=== PATIENT | male | born 1970 | race African-American/Black ===

== ENCOUNTER 2018-05-17 10:28 | Inpatient (IN) | payer OTHER ==
[~2018-05-17] VITALS: Ht 190.5 cm; Wt 133.8 kg
[2018-05-17] MEDS ORDERED: PIP/TAZO PER PHARMACY MC PRN (12:45)
[2018-05-17 13:28] LABS: BASO # 0.1 x10^3/uL (0.0-0.2); BASO % 1 % (0-3); EOS # 0.1 x10^3/uL (0.0-0.7); EOS % 2 % (0-3); HEMATOCRIT 38.2 % (39.0-53.0); HEMOGLOBIN 13.4 g/dL (13.0-17.5); LYMPH # 1.6 x10^3/uL (1.0-4.8); LYMPH % 20 % (24-48); MEAN CORPUSCULAR HEMOGLOBIN 27 pg (25-35); MEAN CORPUSCULAR HGB CONC 35 g/dL (31-37); MEAN CORPUSCULAR VOLUME 77 fL (79-100); MONO # 0.5 x10^3/uL (0.0-1.1); MONO % 6 % (0-9); NEUT # 5.5 x10^3uL (1.8-7.7); NEUT % 71 % (31-73); PLATELET COUNT 280 x10^3/uL (140-400); RED BLOOD COUNT 4.99 x10^6/uL (4.30-5.70); RED CELL DISTRIBUTION WIDTH 17.3 % (11.5-14.5); WHITE BLOOD COUNT 7.8 x10^3/uL (4.0-11.0)
[2018-05-17 13:35] LABS: CALCIUM 9.2 mg/dL (8.5-10.1); GFR 97.3; POTASSIUM 3.8 mmol/L (3.5-5.1)
[2018-05-17 13:41] LABS: ALBUMIN 3.1 g/dL (3.4-5.0); ALBUMIN/GLOBULIN RATIO 0.8 (1.0-1.7); TOTAL BILIRUBIN 0.4 mg/dL (0.2-1.0)
[2018-05-17] MEDS ORDERED: VANCOMYCIN 2 GM in IV NORMAL SALINE 500ML BAG 500 ML IV ONE (14:00)
[2018-05-17] MEDS ORDERED: DEXTROSE 50% 25 GM / 50ML DISP.SYRIN. IV PRN (14:00)
[2018-05-17] MEDS ORDERED: INSULIN NPH/REG INSULIN 70/30 300 UNITS/3 ML INSULN.PEN. SQ PRN (14:15)
[2018-05-17] MEDS: MORPHINE SULFATE 4 MG/ML VIAL. IV PRN ×3 (14:40→22:17)
[2018-05-17 15:00] VITALS: BP 125/81
[2018-05-17] MEDS: PIPERACILLIN/TAZOBACTAM 3.375 GM in IV NORMAL SALINE 50ML 50 ML IV SCH ×2 (15:57→16:58)
[2018-05-17] MEDS: INSULIN NPH/REG INSULIN 70/30 300 UNITS/3 ML INSULN.PEN. SQ SCH (18:14)
[2018-05-17 19:00] VITALS: BP 154/100
[2018-05-17] MEDS: VANCOMYCIN PER PHARMACY MC PRN (20:02)
[2018-05-17] MEDS: LACTOBACILLUS RHAMNOSUS GG 1 CAPSULE. PO SCH (21:07)
[2018-05-17] MEDS: ACYCLOVIR 200 MG CAPSULE. PO SCH (21:07)
[2018-05-17] MEDS: ATORVASTATIN CALCIUM 10 MG TABLET. PO SCH (21:08)
[2018-05-17 23:00] VITALS: BP 144/89
[2018-05-18] MEDS: PIPERACILLIN/TAZOBACTAM 3.375 GM in IV NORMAL SALINE 50ML 50 ML IV SCH ×5 (00:32→18:34)
[2018-05-18 03:00] VITALS: BP 134/90
[2018-05-18] MEDS: VANCOMYCIN 2 GM in IV NORMAL SALINE 500ML BAG 500 ML IV SCH ×2 (04:46→19:37)
[2018-05-18 07:00] VITALS: BP 189/107
[2018-05-18] MEDS: MORPHINE SULFATE 4 MG/ML VIAL. IV PRN ×4 (08:10→21:00)
[2018-05-18] MEDS: ACYCLOVIR 200 MG CAPSULE. PO SCH ×2 (08:10→19:38)
[2018-05-18] MEDS: amLODIPine BESYLATE 10 MG TABLET PO SCH (08:12)
[2018-05-18] MEDS: LISINOPRIL 20 MG TABLET PO SCH (08:12)
[2018-05-18] MEDS: INSULIN NPH/REG INSULIN 70/30 300 UNITS/3 ML INSULN.PEN. SQ SCH ×2 (08:22→16:49)
--- NOTE | 2018-05-18 09:32 | PDOC ---
Infectious Disease Note Vital Sign Vital Signs Vital Signs Date Time Temp Pulse Resp B/P (MAP) Pulse Ox O2 Delivery O2 Flow Rate FiO2 05/18/18 08:12 74 189/107 05/18/18 07:00 98.1 20 74 Room Air 98.1 Labs Lab Laboratory Tests Test 05/17/18 12:08 05/17/18 13:10 05/17/18 18:05 05/17/18 21:48 Glucose (Fingerstick) 152 mg/dL (70-99) 226 mg/dL (70-99) 238 mg/dL (70-99) White Blood Count 7.8 x10^3/uL (4.0-11.0) Red Blood Count 4.99 x10^6/uL (4.30-5.70) Hemoglobin 13.4 g/dL (13.0-17.5) Hematocrit 38.2 % (39.0-53.0) Mean Corpuscular Volume 77 fL (79-100) Mean Corpuscular Hemoglobin 27 pg (25-35) Mean Corpuscular Hemoglobin Concent 35 g/dL (31-37) Red Cell Distribution Width 17.3 % (11.5-14.5) Platelet Count 280 x10^3/uL (140-400) Neutrophils (%) (Auto) 71 % (31-73) Lymphocytes (%) (Auto) 20 % (24-48) Monocytes (%) (Auto) 6 % (0-9) Eosinophils (%) (Auto) 2 % (0-3) Basophils (%) (Auto) 1 % (0-3) Neutrophils # (Auto) 5.5 x10^3uL (1.8-7.7) Lymphocytes # (Auto) 1.6 x10^3/uL (1.0-4.8) Monocytes # (Auto) 0.5 x10^3/uL (0.0-1.1) Eosinophils # (Auto) 0.1 x10^3/uL (0.0-0.7) Basophils # (Auto) 0.1 x10^3/uL (0.0-0.2) Sodium Level 137 mmol/L (136-145) Potassium Level 3.8 mmol/L (3.5-5.1) Chloride Level 103 mmol/L (98-107) Carbon Dioxide Level 29 mmol/L (21-32) Anion Gap 5 (6-14) Blood Urea Nitrogen 15 mg/dL (8-26) Creatinine 1.0 mg/dL (0.7-1.3) Estimated GFR (Cockcroft-Gault) 97.3 BUN/Creatinine Ratio 15 (6-20) Glucose Level 143 mg/dL (70-99) Calcium Level 9.2 mg/dL (8.5-10.1) Total Bilirubin 0.4 mg/dL (0.2-1.0) Aspartate Amino Transf (AST/SGOT) 290 U/L (15-37) Alanine Aminotransferase (ALT/SGPT) 152 U/L (16-63) Alkaline Phosphatase 93 U/L (46-116) Total Protein 7.0 g/dL (6.4-8.2) Albumin 3.1 g/dL (3.4-5.0) Albumin/Globulin Ratio 0.8 (1.0-1.7) Test 05/18/18 08:14 Glucose (Fingerstick) 233 mg/dL (70-99) Objective Assessment Rt big toe infection Rt big toe callous DM HTN Smoking Plan Plan of Care vanc and zosyn MRI d/w Dr Quijano supportive care MEREDITH RICHMOND MD May 18, 2018 09:32
--- NOTE | 2018-05-18 10:33 | HP ---
ADMIT DATE: 05/17/2018 HISTORY OF PRESENT ILLNESS: The patient is a 47-year-old male patient who was seen yesterday at the clinic by Dr. Garcia and was basically found to have infected right big toe and was admitted to do an MRI. We started him on IV antibiotic and to consult the infectious disease as well as the director airport and/or orthopedic surgeon. On questioning him, he did complain of pain, but denied any chills, rigors, or fever. PAST MEDICAL HISTORY: Significant for hypertension, type 2 diabetes as well as diabetic peripheral neuropathy. PAST SURGICAL HISTORY: Unremarkable. ALLERGIES: He has no known drug allergies. MEDICATIONS: He is currently on amlodipine 5 mg once a day, lisinopril 5 mg once a day, hydrochlorothiazide 25 mg once a day, metformin 1000 mg twice a day. He is also on Humalog insulin scheduled as well as sliding scale. FAMILY HISTORY: He has 1 brother and sister, both younger and healthy. His both parents are still alive in their 60s and healthy. SOCIAL HISTORY: He is . He has no children. He continues to smoke. He does not drink alcohol or use any recreational drugs. He is currently at the [facility] after he was released recently from care home. REVIEW OF SYSTEMS: As per history of present illness. PHYSICAL EXAMINATION: GENERAL: On examining him, he was resting flat, comfortably in bed, in no apparent respiratory distress, slightly pale. No jaundice, cyanosis, or thyromegaly. No jugular venous distension. No lower limb edema. VITAL SIGNS: His heart rate was 79, blood pressure 125/81, temperature was 97.9, respiratory rate was 18 and oxygen saturation was 97%. HEAD, EYES, EARS, NOSE AND THROAT: Showed normocephalic, atraumatic. NECK: Supple. HEART: Showed normal first and second heart sounds with no gallop, rub or murmur. CHEST: Clear to auscultation. No crepitation or rhonchi. ABDOMEN: Distended, soft, nontender. No guarding or rigidity. No organomegaly. Hernial orifice intact. Bowel sounds normal. NEUROLOGIC: He is awake, alert, responding appropriately. Cranial nerves intact. EXTREMITIES: He moves extremities without difficulty. He ambulates without assistance or assistive devices. Examination of the extremities showed no clubbing, cyanosis or edema. Both dorsalis pedis and tibialis posterior, both feet are easily palpable. He has markedly swollen infected right big toe with purulent discharge. ASSESSMENT AND PLAN: The patient was admitted directly to [facility] from the clinic and we ordered lab work as well as cultures of the wound to consult the director airport as well as Infectious Disease. Start him on vancomycin and Zosyn as per pharmacy recommendation to continue with all her other medications. We will monitor his blood sugar and adjust insulin as needed. GISELA MOSES MD DR: ANASTASIYA/leonard JOB#: [id number] / [id number]
[2018-05-18] MEDS ORDERED: GADOBUTROL 7.5 MMOL/7.5 ML VIAL IV ONE ×2 (10:45)
[2018-05-18 11:00] VITALS: BP 172/116
[2018-05-18] MEDS: LACTOBACILLUS RHAMNOSUS GG 1 CAPSULE. PO SCH ×2 (12:19→19:38)
--- NOTE | 2018-05-18 13:10 | RAD ---
MR of the right first toe with and without contrast HISTORY: Cellulitis of the first toe. Pain and swelling for one week at the plantar surface. TECHNIQUE: Pre and postcontrast images obtained through the first toe. FINDINGS: Mild marrow edema within the distal first phalanx. No aggressive bone destruction or significant T1 marrow replacement to suggest acute osteomyelitis. Soft tissue edema around the first toe and extending into the distal visualized forefoot, compatible with mild cellulitis and myositis. This demonstrates mild enhancement particularly around the second third and fourth metatarsals. No evidence of an organized fluid collection or drainable abscess. No large joint effusion. There is no evidence of acute tendon disruption. No significant tendon sheath fluid. IMPRESSION: 1. Generalized cellulitis/myositis. No drainable abscess. 2. Mild marrow edema and enhancement at the first distal phalanx is likely reactive. No convincing evidence of osteomyelitis at this time. Electronically signed by: Talon Bai MD (05/18/2018 1:06 PM) [id number]
[2018-05-18] MEDS: VANCOMYCIN PER PHARMACY MC PRN (14:02)
[2018-05-18 15:00] VITALS: BP 171/121
--- NOTE | 2018-05-18 15:15 | PN ---
DATE: 05/18/2018 SUBJECTIVE: The patient is resting flat in bed, in no apparent respiratory distress. No pallor, jaundice, cyanosis or thyromegaly. No jugular venous distension. No lower limb edema. OBJECTIVE: VITAL SIGNS: His heart rate was 74, blood pressure was 189/107, temperature was 98.1, respiratory rate was 20 and oxygen saturation was 96% on room air. HEAD, EYES, EARS, NOSE AND THROAT: Normocephalic, atraumatic. The rest of clinical examination is stable big toes, tender, swollen. LABORATORY DATA: His lab work this morning showed a serum sodium 137, potassium 3.8, chloride 103, bicarbonate 29, anion gap of 5, BUN 15, creatinine 1, estimated GFR was 97, blood glucose was 143. Calcium was 9.2. Total bilirubin and alkaline phosphatase normal. AST, ALT are elevated. Total protein 7, albumin was 3.1. His white cell count was 7800, hemoglobin 13, hematocrit 38, MCV 77, platelet count 280,000. IMPRESSION: In summary, this is a 47-year-old -[place] male patient who was admitted again for infected right big toe. We will arrange for him to have an MRI to exclude the possibility of osteomyelitis. We will continue with IV Zosyn and vancomycin. Continue with his insulin. Continue to monitor his blood sugar and adjust insulin as needed. We have consulted the irrigator head as well as Infectious Disease and will follow him closely and decide the further management according to the finding on MRI. I will also check his sed rate and C-reactive protein to monitor the response to antibiotic. GISELA MOSES MD DR: ANASTASIYA/leonard JOB#: [id number] / [id number]
--- NOTE | 2018-05-18 15:29 | CONS ---
DATE OF CONSULTATION: 05/18/2018 REQUESTING PHYSICIAN: Dr. Quijano. REASON FOR CONSULTATION: Big toe infection. HISTORY OF PRESENT ILLNESS: This is a 47-year-old gentleman with history of diabetes and hypertension who has off and on toe problem for a long time. The patient says it just got worse recently, although my communication with Dr. Quijano, he has seen the patient before at [place] with infection and MRI was negative, treated. The patient evidently had been at the with the same thing too before. The patient denies any fever, denies any trauma. Denies any nausea, vomiting, diarrhea, chest pain, shortness of breath, abdominal pain. PAST MEDICAL HISTORY: Positive for diabetes mellitus, hypertension, hyperlipidemia and peripheral neuropathy. SOCIAL HISTORY: Positive for smoking that he says he quit yesterday. Negative for alcohol use or drug use. ALLERGIES: No known drug allergies. CURRENT MEDICATIONS: Reviewed. The patient is started on vancomycin and Zosyn. REVIEW OF SYSTEMS: As per HPI, all other systems reviewed are negative. PHYSICAL EXAMINATION: GENERAL: Alert, oriented gentleman, not in distress. VITAL SIGNS: Stable, afebrile. HEENT: NAD. NECK: Supple, no JVP, no lymphadenopathy. LUNGS: Clear. HEART: S1, S2 regular. ABDOMEN: Benign. EXTREMITIES: No edema, cyanosis. SKIN: Unremarkable except the right big toe is significantly swollen. It has a chronic appearance. There is a large callus on the plantar surface as well as there is ulcer on the plantar surface. Does have good dorsalis pedis palpable. NEUROLOGIC: The patient is neurologically intact. LABORATORY DATA: White count is normal, hemoglobin and platelets are normal. BUN and creatinine is normal. His AST is 290, ALT is 152. No x-ray yet available, but MRI has been ordered. IMPRESSION: 1. Diabetic foot infection, specifically big toe infection. 2. Diabetes. 3. Hypertension. 4. Hyperlipidemia. PLAN: Recommend continue vancomycin and Zosyn. Check MRI, supportive care and we will continue to follow. The patient was encouraged to stay away from smoking and I believe he also needs to offload this area to be able to get better. His liver function tests will need some more investigation. Thank you very much, Dr. Quijano for giving me the opportunity to participate in this patient's care. MEREDITH RICHMOND MD DR: DILCIA/leonard JOB#: [id number] / [id number]
[2018-05-18] MEDS ORDERED: LISINOPRIL 10 MG TABLET PO ONE (17:00)
[2018-05-18] MEDS ORDERED: amLODIPine BESYLATE 5 MG TABLET PO ONE (17:00)
[2018-05-18] MEDS: ATORVASTATIN CALCIUM 10 MG TABLET. PO SCH (19:38)
[2018-05-18 19:40] VITALS: BP 140/91
[2018-05-18 23:00] VITALS: BP 163/99
[2018-05-19] MEDS: PIPERACILLIN/TAZOBACTAM 3.375 GM in IV NORMAL SALINE 50ML 50 ML IV SCH ×5 (00:13→23:42)
[2018-05-19] MEDS: MORPHINE SULFATE 4 MG/ML VIAL. IV PRN ×3 (01:01→09:37)
[2018-05-19 03:00] VITALS: BP 130/91
[2018-05-19 04:47] LABS: VANC TR 10.6 mcg/mL (10.0-20.0)
[2018-05-19] MEDS: VANCOMYCIN 2 GM in IV NORMAL SALINE 500ML BAG 500 ML IV SCH ×3 (05:00→13:30)
[2018-05-19] MEDS: VANCOMYCIN PER PHARMACY MC PRN (05:36)
[2018-05-19 07:00] VITALS: BP 173/111
[2018-05-19] MEDS: amLODIPine BESYLATE 10 MG TABLET PO SCH (09:36)
[2018-05-19] MEDS: LISINOPRIL 20 MG TABLET PO SCH (09:36)
[2018-05-19] MEDS: LACTOBACILLUS RHAMNOSUS GG 1 CAPSULE. PO SCH ×2 (09:36→20:59)
[2018-05-19] MEDS: ACYCLOVIR 200 MG CAPSULE. PO SCH ×2 (09:36→20:59)
[2018-05-19] MEDS: INSULIN NPH/REG INSULIN 70/30 300 UNITS/3 ML INSULN.PEN. SQ SCH ×2 (09:49→17:45)
[2018-05-19] MEDS: oxyCODONE/APAP 5/325 1 TAB TABLET PO PRN ×3 (11:44→22:11)
[2018-05-19 11:49] VITALS: BP 169/108
--- NOTE | 2018-05-19 15:18 | PDOC ---
Infectious Disease Note Subjective Subjective Comfortable, denies pain/F/C/S/N/V/D ROS ROS per HPI otherwise negative Vital Sign Vital Signs Vital Signs Date Time Temp Pulse Resp B/P (MAP) Pulse Ox O2 Delivery O2 Flow Rate FiO2 05/19/18 12:44 Room Air 05/19/18 11:49 98.2 91 16 169/108 (128) 98 98.2 Physical Exam PHYSICAL EXAM GENERAL: Lying down, alert, smiling LUNGS: Clear. HEART: S1, S2 regular. ABDOMEN: Obese, soft, NT EXTREMITIES: Right foot bandaged SKIN: without rash NEUROLOGIC: Alert and oriented x 3 Labs Lab Laboratory Tests Test 05/18/18 16:47 05/18/18 20:46 05/19/18 04:15 05/19/18 07:37 Glucose (Fingerstick) 80 mg/dL (70-99) 176 mg/dL (70-99) 152 mg/dL (70-99) Erythrocyte Sedimentation Rate 8 (0-15) C-Reactive Protein, Quantitative 2.3 mg/L (0-3.3) Vancomycin Level Trough 10.6 mcg/mL (10.0-20.0) Vancomycin Last Dose Date [id number] Vancomycin Last Dose Time 1700 MRI right foot IMPRESSION: 1. Generalized cellulitis/myositis. No drainable abscess. 2. Mild marrow edema and enhancement at the first distal phalanx is likely reactive. No convincing evidence of osteomyelitis at this time. Objective Assessment Diabetic foot infection, specifically big toe infection. -MRI neg abscess or osteo Diabetes. Hypertension. Hyperlipidemia. Transaminitis Plan Plan of Care Vanc and Zosyn Trough 10.6 f/u labs in am Local wound care Patient seen and examined. Chart reviewed in detail. Case discussed with FOOD SERVICES MANAGER. Agree with above plan. DAE PIZARRO APRN May 19, 2018 15:18 JALIL ARNOLD MD May 19, 2018 19:44
[2018-05-19 15:36] VITALS: BP 173/102
--- NOTE | 2018-05-19 16:23 | CONS ---
DATE OF CONSULTATION: INDICATIONS: This 47-year-old gentleman has had problems with his right great toe. He has a history of diabetes with neuropathy and has had some previous treatment. He has been admitted to [facility] for treatment of this ulceration, has had previous treatment at [facility]. MRI has been done to rule out infection, which appears to be negative. PAST MEDICAL HISTORY: Hypertension, type 2 diabetes with peripheral neuropathy. PHYSICAL EXAMINATION: The patient has a very large ulceration on the plantar aspect of the right great toe. There is a peeling skin that is present with callus formation, some of which is a result of IV therapy and the swelling in the toe has apparently gone down. The base of that ulceration appears to be beefy red with granulation tissue. No necrotic tissue was noted. Very large in size. The toe is swollen, but does not appear to be grossly infected. No signs of abscess, drainage or odor. Pedal pulses are diminished, but present. ASSESSMENT: 1. Chronic diabetic ulcer, right great toe. 2. History of diabetes with neuropathy. PLAN: Remove some of the loose calluses in the process of being discharged. I talked to his case repairer that is present in the room and the patient and advised him that he really needs to stay off this, he needs to probably be followed up at the wound care center here at [facility] and see what they can do and the need to do aggressive immobilization. I do not know if he would be a candidate for hyperbaric along with possible vascular studies. I advised the patient that if he does not take care of this, that this could very easily end up with an amputated toe, which may not be all that bad of a resolution to his problem because I think it might be very hard to get him to stay off this long enough to get this large ulcer healed. My recommendation is to have him follow up at the wound care center here at [facility] for aggressive therapy and off weight protocols being initiated. MADI RAIN DPM DR: MUNIR/leonard JOB#: [id number] / [id number]
[2018-05-19 19:00] VITALS: BP 162/102
--- NOTE | 2018-05-19 22:16 | PN ---
DATE: 05/19/2018 SUBJECTIVE: The patient is sitting on the edge of the bed comfortably, in no apparent distress. He is awake, alert. On questioning him, he denied any complaint. Nursing staff did not voice any concern and stated he had an uneventful night. He has had an MRI, which basically showed that the patient has generalized cellulitis, myositis with no drainable abscess, mild marrow edema and enhancement at the first distal phalanx, likely reactive. There is no convincing evidence of osteomyelitis at this time. The patient was seen by the infectious disease specialist. He is now continued to be on IV vancomycin and Zosyn. His sed rate and C-reactive protein are within normal range. OBJECTIVE: GENERAL: On examining him today, he looked well and was clearly in no apparent respiratory distress. No pallor, jaundice, cyanosis or thyromegaly. No jugular venous distension. No limb edema. VITAL SIGNS: His heart rate was 79, blood pressure was 130/91, temperature was 98.1, respiratory rate was 16 and oxygen saturation was 96%. The rest of clinical exam is stable. LABORATORY DATA: Showed that he has elevated AST, ALT. I will hold his atorvastatin, calcium and repeat his lab works again tomorrow. PLAN: Continue meanwhile with IV vancomycin and Zosyn. I would consult also physical therapy to see if there are any surgical shoes that will prevent pressure on his big toe that has been now with recurrent cellulitis for which he was seen at least 4 times so far. GISELA MOSES MD DR: ANASTASIYA/leonard JOB#: [id number] / [id number]
[2018-05-19 23:00] VITALS: BP 137/92
[2018-05-20] MEDS: VANCOMYCIN 2 GM in IV NORMAL SALINE 500ML BAG 500 ML IV SCH ×2 (00:56→13:21)
[2018-05-20 03:00] VITALS: BP 158/101
[2018-05-20 06:05] LABS: ALBUMIN 2.8 g/dL (3.4-5.0); ALBUMIN/GLOBULIN RATIO 0.8 (1.0-1.7); CALCIUM 8.7 mg/dL (8.5-10.1); CREATININE 0.9 mg/dL (0.7-1.3); GFR 109.9; POTASSIUM 3.8 mmol/L (3.5-5.1); TOTAL BILIRUBIN 0.2 mg/dL (0.2-1.0); TOTAL PROTEIN 6.4 g/dL (6.4-8.2)
[2018-05-20] MEDS: PIPERACILLIN/TAZOBACTAM 3.375 GM in IV NORMAL SALINE 50ML 50 ML IV SCH ×4 (06:17→23:58)
[2018-05-20 07:00] VITALS: BP 145/103
[2018-05-20] MEDS: oxyCODONE/APAP 5/325 1 TAB TABLET PO PRN ×4 (07:54→20:09)
[2018-05-20] MEDS: INSULIN NPH/REG INSULIN 70/30 300 UNITS/3 ML INSULN.PEN. SQ SCH ×2 (07:56→17:21)
[2018-05-20] MEDS: LISINOPRIL 20 MG TABLET PO SCH (08:42)
[2018-05-20] MEDS: amLODIPine BESYLATE 10 MG TABLET PO SCH (08:42)
[2018-05-20] MEDS: LACTOBACILLUS RHAMNOSUS GG 1 CAPSULE. PO SCH ×2 (08:42→20:09)
[2018-05-20] MEDS: ACYCLOVIR 200 MG CAPSULE. PO SCH ×2 (08:42→20:09)
--- NOTE | 2018-05-20 10:30 | PDOC ---
Infectious Disease Note Subjective Subjective Comfortable, Denies pain/F/C/S/N/V/D ROS ROS per HPI otherwise neg Vital Sign Vital Signs Vital Signs Date Time Temp Pulse Resp B/P (MAP) Pulse Ox O2 Delivery O2 Flow Rate FiO2 05/20/18 09:43 Room Air 05/20/18 08:42 71 145/103 05/20/18 07:00 97.7 16 100 97.7 Physical Exam PHYSICAL EXAM GENERAL: Walking back to bed, steady gait, smiling LUNGS: Clear. HEART: S1, S2 regular. ABDOMEN: Obese, soft, NT EXTREMITIES: Right great toe swollen. The base of the plantar ulcer is pink, clean, callused edges SKIN: without rash NEUROLOGIC: Alert and oriented x 3 Labs Lab Laboratory Tests Test 05/19/18 10:48 05/19/18 16:15 05/19/18 21:29 05/20/18 05:00 Glucose (Fingerstick) 203 mg/dL (70-99) 172 mg/dL (70-99) 132 mg/dL (70-99) Sodium Level 140 mmol/L (136-145) Potassium Level 3.8 mmol/L (3.5-5.1) Chloride Level 105 mmol/L (98-107) Carbon Dioxide Level 27 mmol/L (21-32) Anion Gap 8 (6-14) Blood Urea Nitrogen 15 mg/dL (8-26) Creatinine 0.9 mg/dL (0.7-1.3) Estimated GFR (Cockcroft-Gault) 109.9 BUN/Creatinine Ratio 17 (6-20) Glucose Level 165 mg/dL (70-99) Calcium Level 8.7 mg/dL (8.5-10.1) Total Bilirubin 0.2 mg/dL (0.2-1.0) Aspartate Amino Transf (AST/SGOT) 79 U/L (15-37) Alanine Aminotransferase (ALT/SGPT) 88 U/L (16-63) Alkaline Phosphatase 83 U/L (46-116) Total Protein 6.4 g/dL (6.4-8.2) Albumin 2.8 g/dL (3.4-5.0) Albumin/Globulin Ratio 0.8 (1.0-1.7) Test 05/20/18 07:35 Glucose (Fingerstick) 162 mg/dL (70-99) Objective Assessment Diabetic foot infection, specifically big toe infection. -MRI neg abscess or osteo -s/p removal loose calluses by podiatry, 05/19 Diabetes. Hypertension. Hyperlipidemia. Transaminitis Plan Plan of Care Vanc and Zosyn Trough 10.6 Monitor renal funtion closely am labs Local wound care Offloading D/w Dr. Quijano Patient seen and examined. Chart reviewed in detail. Case discussed with SEED CLEANER OPERATOR. Agree with above plan. DAE PIZARRO APRN May 20, 2018 10:30 JALIL ARNOLD MD May 20, 2018 21:22
[2018-05-20 11:00] VITALS: BP 171/113
[2018-05-20] MEDS: hydrALAZINE 25 MG TABLET PO SCH ×2 (13:21→20:09)
[2018-05-20] MEDS: VANCOMYCIN PER PHARMACY MC PRN (15:10)
[2018-05-20 15:33] VITALS: BP 134/97
[2018-05-20 19:00] VITALS: BP 144/98
[2018-05-20 22:35] VITALS: BP 143/95
--- NOTE | 2018-05-20 23:20 | PN ---
DATE: 05/20/2018 SUBJECTIVE: The patient is sitting on the edge of the bed comfortably, in no apparent distress. He was seen by the conference translator who recommended to stay off the right foot to allow the infection to resolve; unfortunately, that is unlikely to happen. PHYSICAL EXAMINATION: GENERAL: When I examined him, he looked well and was clearly in no apparent respiratory distress. VITAL SIGNS: His heart rate was 71, blood pressure 145/103, temperature was 97.7, respiratory rate was 16 and oxygen saturation was 100%. The rest of the clinical examination is unremarkable. LABORATORY DATA: His lab work as of this morning showed a serum sodium 140, potassium 3.8, chloride 105, bicarbonate 27, anion gap of 8, BUN 15, creatinine 0.9, estimated GFR was 110 mL per minute, his glucose 165 and calcium was 8.7. Total bilirubin and alkaline phosphatase were normal. His AST and ALT were slightly elevated, but trending down. Total protein 6.4. Albumin 2.8. His white cell count was 7800, hemoglobin 13, hematocrit 38, MCV 77 and platelet count 280,000. Sed rate was 8 mm per hour and C-reactive protein was 2.5 mg per dL. ASSESSMENT: Infected right big toe with no evidence of osteomyelitis, type 2 diabetes, hypertension, hyperlipidemia and transaminitis, most likely due to his statins and that were discontinued. His ALT and AST are trending down. PLAN: The plan is to continue with vancomycin and Zosyn. The patient basically requesting to be discharged, so I advised him to stay one more day today and tomorrow we will discuss with the Infectious Disease specialist to see if we can switch him to something and he can go home. I also consulted the physical therapist to see if he has any surgical shoes that might help prevent pressure on the toe to allow it to heal. GISELA MOSES MD DR: ANASTASIYA/leonard JOB#: [id number] / [id number]
[2018-05-21] MEDS: VANCOMYCIN 2 GM in IV NORMAL SALINE 500ML BAG 500 ML IV SCH (00:37)
[2018-05-21 02:34] VITALS: BP 133/85
[2018-05-21 03:58] LABS: BASO % 0 % (0-3); EOS # 0.2 x10^3/uL (0.0-0.7); EOS % 3 % (0-3); HEMATOCRIT 36.2 % (39.0-53.0); HEMOGLOBIN 12.5 g/dL (13.0-17.5); LYMPH # 2.1 x10^3/uL (1.0-4.8); LYMPH % 25 % (24-48); MEAN CORPUSCULAR HEMOGLOBIN 27 pg (25-35); MEAN CORPUSCULAR HGB CONC 34 g/dL (31-37); MEAN CORPUSCULAR VOLUME 77 fL (79-100); MONO # 0.7 x10^3/uL (0.0-1.1); MONO % 9 % (0-9); NEUT # 5.3 x10^3uL (1.8-7.7); NEUT % 63 % (31-73); PLATELET COUNT 226 x10^3/uL (140-400); RED BLOOD COUNT 4.71 x10^6/uL (4.30-5.70); RED CELL DISTRIBUTION WIDTH 17.5 % (11.5-14.5); WHITE BLOOD COUNT 8.3 x10^3/uL (4.0-11.0)
[2018-05-21 04:20] LABS: ALBUMIN 2.7 g/dL (3.4-5.0); ALBUMIN/GLOBULIN RATIO 0.8 (1.0-1.7); CALCIUM 8.1 mg/dL (8.5-10.1); CREATININE 0.8 mg/dL (0.7-1.3); GFR 125.9; POTASSIUM 3.3 mmol/L (3.5-5.1); TOTAL BILIRUBIN 0.2 mg/dL (0.2-1.0); TOTAL PROTEIN 6.2 g/dL (6.4-8.2)
[2018-05-21] MEDS: PIPERACILLIN/TAZOBACTAM 3.375 GM in IV NORMAL SALINE 50ML 50 ML IV SCH ×2 (06:04→12:00)
[2018-05-21 07:00] VITALS: BP 152/110
[2018-05-21] MEDS: LACTOBACILLUS RHAMNOSUS GG 1 CAPSULE. PO SCH (08:26)
[2018-05-21] MEDS: LISINOPRIL 20 MG TABLET PO SCH (08:26)
[2018-05-21] MEDS: amLODIPine BESYLATE 10 MG TABLET PO SCH (08:27)
[2018-05-21] MEDS: ACYCLOVIR 200 MG CAPSULE. PO SCH (08:27)
[2018-05-21] MEDS: oxyCODONE/APAP 5/325 1 TAB TABLET PO PRN (08:28)
[2018-05-21] MEDS: hydrALAZINE 25 MG TABLET PO SCH (08:28)
[2018-05-21] MEDS: INSULIN NPH/REG INSULIN 70/30 300 UNITS/3 ML INSULN.PEN. SQ SCH (08:33)
--- NOTE | 2018-05-21 10:42 | PDOC ---
Infectious Disease Note Subjective Subjective Comfortable, Denies pain/F/C/S/N/V/D Vital Sign Vital Signs Vital Signs Date Time Temp Pulse Resp B/P (MAP) Pulse Ox O2 Delivery O2 Flow Rate FiO2 05/21/18 09:30 20 94 Room Air 05/21/18 08:28 72 133/85 05/21/18 07:00 98.0 98.0 Physical Exam PHYSICAL EXAM GENERAL: Walking back to bed, steady gait, smiling LUNGS: Clear. HEART: S1, S2 regular. ABDOMEN: Obese, soft, NT EXTREMITIES: Right great toe swollen. The base of the plantar ulcer is pink, clean, callused edges SKIN: without rash NEUROLOGIC: Alert and oriented x 3 Labs Lab Laboratory Tests Test 05/20/18 11:06 05/20/18 16:02 05/20/18 20:03 05/21/18 03:30 Glucose (Fingerstick) 199 mg/dL (70-99) 223 mg/dL (70-99) 180 mg/dL (70-99) White Blood Count 8.3 x10^3/uL (4.0-11.0) Red Blood Count 4.71 x10^6/uL (4.30-5.70) Hemoglobin 12.5 g/dL (13.0-17.5) Hematocrit 36.2 % (39.0-53.0) Mean Corpuscular Volume 77 fL (79-100) Mean Corpuscular Hemoglobin 27 pg (25-35) Mean Corpuscular Hemoglobin Concent 34 g/dL (31-37) Red Cell Distribution Width 17.5 % (11.5-14.5) Platelet Count 226 x10^3/uL (140-400) Neutrophils (%) (Auto) 63 % (31-73) Lymphocytes (%) (Auto) 25 % (24-48) Monocytes (%) (Auto) 9 % (0-9) Eosinophils (%) (Auto) 3 % (0-3) Basophils (%) (Auto) 0 % (0-3) Neutrophils # (Auto) 5.3 x10^3uL (1.8-7.7) Lymphocytes # (Auto) 2.1 x10^3/uL (1.0-4.8) Monocytes # (Auto) 0.7 x10^3/uL (0.0-1.1) Eosinophils # (Auto) 0.2 x10^3/uL (0.0-0.7) Basophils # (Auto) 0.0 x10^3/uL (0.0-0.2) Sodium Level 139 mmol/L (136-145) Potassium Level 3.3 mmol/L (3.5-5.1) Chloride Level 105 mmol/L (98-107) Carbon Dioxide Level 28 mmol/L (21-32) Anion Gap 6 (6-14) Blood Urea Nitrogen 11 mg/dL (8-26) Creatinine 0.8 mg/dL (0.7-1.3) Estimated GFR (Cockcroft-Gault) 125.9 BUN/Creatinine Ratio 14 (6-20) Glucose Level 150 mg/dL (70-99) Calcium Level 8.1 mg/dL (8.5-10.1) Total Bilirubin 0.2 mg/dL (0.2-1.0) Aspartate Amino Transf (AST/SGOT) 57 U/L (15-37) Alanine Aminotransferase (ALT/SGPT) 75 U/L (16-63) Alkaline Phosphatase 82 U/L (46-116) Total Protein 6.2 g/dL (6.4-8.2) Albumin 2.7 g/dL (3.4-5.0) Albumin/Globulin Ratio 0.8 (1.0-1.7) Test 05/21/18 07:45 Glucose (Fingerstick) 164 mg/dL (70-99) Objective Assessment Rt big toe infection Rt big toe callous DM HTN Smoking Plan Plan of Care Vanc and Zosyn,, change to po augmentin Trough 10.6 Monitor renal funtion closely am labs Local wound care Offloading D/w Dr. Quijano pt need 1/2 shoe, to off load the pressure on toe, and then once ulcer heals then will need mold to make a proper off loading shoe MEREDITH RICHMOND MD May 21, 2018 10:42
[2018-05-21 11:00] VITALS: BP 143/91
== END 2018-05-21 12:30 | disposition home or self-care (01) | DRG 603 ==
LOC: 5 SOUTH 11:29
PROVIDERS: ADMIT Internal Medicine; ATTEND Internal Medicine
PROC: 0HBMXZZ Excision of Right Foot Skin, External Approach (ICD-10-PCS; principal; 2018-05-19)
DX: L03.031 Cellulitis of right toe (principal); E11.621 Type 2 diabetes mellitus with foot ulcer; E11.42 Type 2 diabetes mellitus with diabetic polyneuropathy; E11.628 Type 2 diabetes mellitus with other skin complications; E78.5 Hyperlipidemia, unspecified; F17.200 Nicotine dependence, unspecified, uncomplicated; I10 Essential (primary) hypertension; R74.0 Nonspecific elevation of levels of transaminase and lactic acid dehydrogenase [LDH]; L84 Corns and callosities; L97.519 Non-pressure chronic ulcer of other part of right foot with unspecified severity; M60.9 Myositis, unspecified; Z79.84 Long term (current) use of oral hypoglycemic drugs; Z79.899 Other long term (current) drug therapy
CPT/HCPCS: 36415; 73720; 80053; 80202; 82962; 85025; 85651; 86140; A9585; J1815; J2270; J2543; J3370; J7040

== ENCOUNTER → 2018-05-31 | Outpatient (CLI) | payer OTHER ==
[2018-05-21 11:00] VITALS: BP 143/91
== END | disposition home or self-care (01) ==
LOC: PMGWOUND 10:02
PROVIDERS: ATTEND Emergency Medicine Undersea and Hyperbaric Medicine
DX: E11.621 Type 2 diabetes mellitus with foot ulcer (principal); L97.513 Non-pressure chronic ulcer of other part of right foot with necrosis of muscle; E11.42 Type 2 diabetes mellitus with diabetic polyneuropathy; L84 Corns and callosities; I10 Essential (primary) hypertension; F17.200 Nicotine dependence, unspecified, uncomplicated; E78.5 Hyperlipidemia, unspecified; E66.9 Obesity, unspecified; Z68.32 Body mass index [BMI] 32.0-32.9, adult; Z79.84 Long term (current) use of oral hypoglycemic drugs; Z79.899 Other long term (current) drug therapy
CPT/HCPCS: 11042

== ENCOUNTER → 2018-06-05 | Outpatient (CLI) | payer OTHER ==
[2018-05-21 11:00] VITALS: BP 143/91
== END | disposition home or self-care (01) ==
LOC: PMGWOUND 10:10
PROVIDERS: ATTEND Emergency Medicine Undersea and Hyperbaric Medicine
DX: E11.621 Type 2 diabetes mellitus with foot ulcer (principal); L97.513 Non-pressure chronic ulcer of other part of right foot with necrosis of muscle; E11.42 Type 2 diabetes mellitus with diabetic polyneuropathy; L84 Corns and callosities; I10 Essential (primary) hypertension; F17.210 Nicotine dependence, cigarettes, uncomplicated; E78.5 Hyperlipidemia, unspecified; E66.9 Obesity, unspecified; Z68.32 Body mass index [BMI] 32.0-32.9, adult; Z79.84 Long term (current) use of oral hypoglycemic drugs; Z79.899 Other long term (current) drug therapy
CPT/HCPCS: 11042

== ENCOUNTER → 2018-06-12 | Outpatient (CLI) | payer OTHER ==
[2018-05-21 11:00] VITALS: BP 143/91
[2018-06-12 12:15] LABS: BASO # 0.1 x10^3/uL (0.0-0.2); BASO % 1 % (0-3); EOS # 0.1 x10^3/uL (0.0-0.7); EOS % 2 % (0-3); HEMATOCRIT 41.5 % (39.0-53.0); HEMOGLOBIN 14.7 g/dL (13.0-17.5); LYMPH # 2.1 x10^3/uL (1.0-4.8); LYMPH % 24 % (24-48); MEAN CORPUSCULAR HEMOGLOBIN 28 pg (25-35); MEAN CORPUSCULAR HGB CONC 35 g/dL (31-37); MEAN CORPUSCULAR VOLUME 78 fL (79-100); MONO # 0.9 x10^3/uL (0.0-1.1); MONO % 10 % (0-9); NEUT # 5.7 x10^3uL (1.8-7.7); NEUT % 63 % (31-73); PLATELET COUNT 213 x10^3/uL (140-400); RED BLOOD COUNT 5.34 x10^6/uL (4.30-5.70); RED CELL DISTRIBUTION WIDTH 18.5 % (11.5-14.5)
[2018-06-12 12:24] LABS: BILIRUBIN,URINE NEGATIVE (NEG); CLARITY,URINE CLEAR; COLOR,URINE YELLOW; NITRITE,URINE NEGATIVE (NEG); PH,URINE 5.5; PROTEIN,URINE NEGATIVE (NEG-TRACE); UROBILINOGEN,URINE 0.2 mg/dL (0.2 mg/dL)
[2018-06-12 12:35] LABS: RBC,URINE OCC /HPF (0-2)
[2018-06-12 12:36] LABS: BACTERIA,URINE 0 /HPF (0-FEW); WBC,URINE OCC /HPF (0-4)
[2018-06-12 12:49] LABS: CALCIUM 9.1 mg/dL (8.5-10.1); CREATININE 1.1 mg/dL (0.7-1.3); GFR 87.2; POTASSIUM 4.1 mmol/L (3.5-5.1)
== END | disposition home or self-care (01) ==
LOC: PMGWOUND 10:48
PROVIDERS: ATTEND Emergency Medicine Undersea and Hyperbaric Medicine
DX: E11.621 Type 2 diabetes mellitus with foot ulcer (principal); L97.513 Non-pressure chronic ulcer of other part of right foot with necrosis of muscle; E11.42 Type 2 diabetes mellitus with diabetic polyneuropathy; L84 Corns and callosities; I10 Essential (primary) hypertension; F17.210 Nicotine dependence, cigarettes, uncomplicated; E78.5 Hyperlipidemia, unspecified
CPT/HCPCS: 36415; 80048; 81001; 82962; 85025; 99213

== ENCOUNTER → 2018-06-19 | Outpatient (CLI) | payer OTHER ==
[2018-05-21 11:00] VITALS: BP 143/91
== END | disposition home or self-care (01) ==
LOC: PMGWOUND 10:22
PROVIDERS: ATTEND Emergency Medicine Undersea and Hyperbaric Medicine
DX: E11.621 Type 2 diabetes mellitus with foot ulcer (principal); L97.513 Non-pressure chronic ulcer of other part of right foot with necrosis of muscle; E11.42 Type 2 diabetes mellitus with diabetic polyneuropathy; L84 Corns and callosities; I10 Essential (primary) hypertension; F17.210 Nicotine dependence, cigarettes, uncomplicated; E78.5 Hyperlipidemia, unspecified; E66.9 Obesity, unspecified; Z68.32 Body mass index [BMI] 32.0-32.9, adult; Z79.84 Long term (current) use of oral hypoglycemic drugs; Z79.899 Other long term (current) drug therapy
CPT/HCPCS: 11042; 97597

== ENCOUNTER → 2018-06-28 | Outpatient (CLI) | payer OTHER | END | disposition home or self-care (01) | LOC: PMGWOUND 10:10 | PROVIDERS: ATTEND Emergency Medicine Undersea and Hyperbaric Medicine | DX: E11.621 Type 2 diabetes mellitus with foot ulcer (principal); L97.513 Non-pressure chronic ulcer of other part of right foot with necrosis of muscle; E11.42 Type 2 diabetes mellitus with diabetic polyneuropathy; L84 Corns and callosities; I10 Essential (primary) hypertension; F17.210 Nicotine dependence, cigarettes, uncomplicated; E78.5 Hyperlipidemia, unspecified; E66.9 Obesity, unspecified; Z68.32 Body mass index [BMI] 32.0-32.9, adult | CPT/HCPCS: 11042 ==

== ENCOUNTER → 2018-07-02 | Outpatient (CLI) | payer OTHER | END | disposition home or self-care (01) | LOC: PMGWOUND 12:03 | PROVIDERS: ATTEND Emergency Medicine Undersea and Hyperbaric Medicine | DX: E11.621 Type 2 diabetes mellitus with foot ulcer (principal); L97.513 Non-pressure chronic ulcer of other part of right foot with necrosis of muscle; E11.42 Type 2 diabetes mellitus with diabetic polyneuropathy; L84 Corns and callosities; I10 Essential (primary) hypertension; F17.210 Nicotine dependence, cigarettes, uncomplicated; E78.5 Hyperlipidemia, unspecified; E66.9 Obesity, unspecified; Z68.32 Body mass index [BMI] 32.0-32.9, adult | CPT/HCPCS: 11042 ==

== ENCOUNTER → 2018-07-11 | Outpatient (CLI) | payer OTHER | END | disposition home or self-care (01) | LOC: PMGWOUND 11:21 | PROVIDERS: ATTEND Preventive Medicine Undersea and Hyperbaric Medicine | DX: E11.621 Type 2 diabetes mellitus with foot ulcer (principal); L97.513 Non-pressure chronic ulcer of other part of right foot with necrosis of muscle; E11.42 Type 2 diabetes mellitus with diabetic polyneuropathy; L84 Corns and callosities; I10 Essential (primary) hypertension; F17.210 Nicotine dependence, cigarettes, uncomplicated; E78.5 Hyperlipidemia, unspecified; E66.9 Obesity, unspecified; Z68.32 Body mass index [BMI] 32.0-32.9, adult; Z79.84 Long term (current) use of oral hypoglycemic drugs; Z79.899 Other long term (current) drug therapy | CPT/HCPCS: 11042; 87071; 87075 ==

== ENCOUNTER → 2018-08-02 | Outpatient (CLI) | payer OTHER | END | disposition home or self-care (01) | LOC: PMGWOUND 08:19 | PROVIDERS: ATTEND Emergency Medicine Undersea and Hyperbaric Medicine | DX: E11.621 Type 2 diabetes mellitus with foot ulcer (principal); L97.513 Non-pressure chronic ulcer of other part of right foot with necrosis of muscle; E11.42 Type 2 diabetes mellitus with diabetic polyneuropathy; L84 Corns and callosities; I10 Essential (primary) hypertension; E78.5 Hyperlipidemia, unspecified; F17.210 Nicotine dependence, cigarettes, uncomplicated; E66.9 Obesity, unspecified; Z68.32 Body mass index [BMI] 32.0-32.9, adult | CPT/HCPCS: 99214; G0463 ==

== ENCOUNTER → 2018-08-10 | Outpatient (CLI) | payer OTHER | END | disposition home or self-care (01) | LOC: PMGWOUND 08:10 | PROVIDERS: ATTEND Preventive Medicine Undersea and Hyperbaric Medicine | DX: E11.621 Type 2 diabetes mellitus with foot ulcer (principal); L97.513 Non-pressure chronic ulcer of other part of right foot with necrosis of muscle; E11.42 Type 2 diabetes mellitus with diabetic polyneuropathy; L84 Corns and callosities; I10 Essential (primary) hypertension; E78.5 Hyperlipidemia, unspecified; F17.210 Nicotine dependence, cigarettes, uncomplicated; E66.9 Obesity, unspecified; Z68.32 Body mass index [BMI] 32.0-32.9, adult | CPT/HCPCS: 11042; 87071; 87075 ==

== ENCOUNTER → 2018-08-14 | Outpatient (CLI) | payer OTHER | END | disposition home or self-care (01) | LOC: PMGWOUND 09:25 | PROVIDERS: ATTEND Emergency Medicine Undersea and Hyperbaric Medicine | DX: E11.621 Type 2 diabetes mellitus with foot ulcer (principal); L97.513 Non-pressure chronic ulcer of other part of right foot with necrosis of muscle; E11.42 Type 2 diabetes mellitus with diabetic polyneuropathy; L84 Corns and callosities; I10 Essential (primary) hypertension; E78.5 Hyperlipidemia, unspecified; F17.210 Nicotine dependence, cigarettes, uncomplicated; E66.9 Obesity, unspecified; Z68.32 Body mass index [BMI] 32.0-32.9, adult | CPT/HCPCS: 11042 ==